=== PATIENT | female | born 1950 | race Caucasian/White ===

== ENCOUNTER → 2024-03-15 | Outpatient (CLI) | payer OTHER, SELFPAY ==
[2024-03-15 11:41] LABS: INR 2.2 (0.9-1.3); Prothrombin Time 22.3 Seconds (9.0-12.2)
[2024-03-15 11:51] LABS: Cardiac Risk Estimate 5.4 RATIO (3.7-5.6); Cholesterol 231 mg/dL (132-200); HDL Cholesterol 43 mg/dL (40-60); LDL Cholesterol,Calculated 147 mg/dL (0-130); Triglycerides 207 mg/dL (30-150)
== END | disposition home or self-care (01) ==
LOC: COPL 10:40
PROVIDERS: PCP Family Medicine; Referring Provider Internal Medicine Cardiovascular Disease; Visit Provider Internal Medicine Cardiovascular Disease
DX: I10 Essential (primary) hypertension (principal); E78.5 Hyperlipidemia, unspecified; I48.20 Chronic atrial fibrillation, unspecified
CPT/HCPCS: 36415; 80061; 85610

== ENCOUNTER → 2024-04-15 | Outpatient (CLI) | payer OTHER, SELFPAY ==
[2024-04-15 14:36] LABS: INR 2.3 (0.9-1.3); Prothrombin Time 23.8 Seconds (9.0-12.2)
== END | disposition home or self-care (01) ==
PROVIDERS: PCP Family Medicine; Referring Provider Internal Medicine Cardiovascular Disease; Visit Provider Internal Medicine Cardiovascular Disease
DX: I48.20 Chronic atrial fibrillation, unspecified (principal)
CPT/HCPCS: 36415; 85610

== ENCOUNTER → 2024-05-18 | Outpatient (CLI) | payer OTHER, SELFPAY ==
[2024-05-18 11:45] LABS: INR 2.4 (0.9-1.3)
[2024-05-18 11:57] LABS: Cardiac Risk Estimate 5.2 RATIO (3.7-5.6); Cholesterol 215 mg/dL (132-200); HDL Cholesterol 41 mg/dL (40-60); LDL Cholesterol,Calculated 141 mg/dL (0-130); Triglycerides 166 mg/dL (30-150)
== END | disposition home or self-care (01) ==
LOC: COPL 10:50
PROVIDERS: PCP Nurse Practitioner Family; Referring Provider Internal Medicine Cardiovascular Disease; Visit Provider Internal Medicine Cardiovascular Disease
DX: I10 Essential (primary) hypertension (principal); I20.9 Angina pectoris, unspecified; E78.5 Hyperlipidemia, unspecified; I48.20 Chronic atrial fibrillation, unspecified
CPT/HCPCS: 36415; 80061; 85610

== ENCOUNTER → 2024-05-20 | Outpatient (CLI) | payer OTHER, SELFPAY ==
[2024-05-20 11:14] LABS: Basophils # (Auto) 0.1 Thou/mm3 (0.0-0.2); Basophils % (Auto) 1 % (0-2.5); Eosinophils # (Auto) 0.2 Thou/mm3 (0.0-0.5); Eosinophils % (Auto) 3 % (0-10); Hematocrit 42.6 % (36.0-46.0); Hemoglobin 14.3 g/dL (12.0-16.0); Immature Granulocytes % (Auto) 0 % (0-0); Immature Granulocytes Auto 0.02 Thou/mm3 (0.00-0.00); Lymphocytes # (Auto) 1.6 Thou/mm3 (1.0-4.8); Lymphocytes % (Auto) 30 % (10-50); Mean Corpuscular HGB Conc 33.6 g/dl (31.0-37.0); Mean Corpuscular Hemoglobin 29.9 pg (25.0-35.0); Mean Corpuscular Volume 89 fL (80-100); Monocytes # (Auto) 0.5 Thou/mm3 (0.0-0.8); Monocytes % (Auto) 10 % (0-12); Neutrophils # (Auto) 2.9 Thou/mm3 (1.8-7.7); Neutrophils % (Auto) 55 % (37-80); Nucleated Red Blood Cell % 0 /100 WBC (0); Platelet Count 214 Thou/mm3 (140-440); RDW Standard Deviation 44.5 fL (36.4-46.3); Red Blood Count 4.78 Miln/mm3 (4.00-5.20); White Blood Count 5.2 Thou/mm3 (3.6-11.0)
[2024-05-20 11:27] LABS: Glucose Estimated Average 114 mg/dL (80-131); Hemoglobin A1C 5.6 % Hgb (4.8-6.0)
[2024-05-20 11:35] LABS: T4 (Thyroxine) 13.4 mcg/dL (4.5-10.9)
[2024-05-20 11:39] LABS: Alanine Aminotransferase 16 U/L (10-49); Albumin, Serum 3.8 gm/dL (3.4-4.8); Albumin/Globulin Ratio 1.7 (1.2-2.2); Alkaline Phosphatase 108 U/L (46-116); Anion Gap 4 (7-16); Aspartate Amino Transferase 19 U/L (0-34); BUN/Creatinine Ratio 30 Ratio (12-20); Bilirubin,Total 0.9 mg/dL (0.3-1.2); Blood Urea Nitrogen 18 mg/dL (9-23); Calcium 9.3 mg/dL (8.3-10.6); Calcium (Corrected) 9.5 mg/dL (8.5-10.1); Carbon Dioxide 29.6 mMol/L (20.0-31.0); Cardiac Risk Estimate 5.1 RATIO (3.7-5.6); Chloride 106 mMol/L (98-107); Cholesterol 200 mg/dL (132-200); Creatinine (Component) 0.6 mg/dL (0.6-1.3); Globulin 2.3 gm/dL (2.3-3.5); Glucose 89 mg/dL (74-106); HDL Cholesterol 39 mg/dL (40-60); LDL Cholesterol,Calculated 127 mg/dL (0-130); Lipase 34 U/L (12-53); Osmolality,Calculated 280 (275-295); Potassium 3.8 mMol/L (3.4-5.1); Sodium 140 mMol/L (136-145); Thyroid Stimulating Hormone 1.98 uIU/mL (0.55-4.78); Total Protein 6.1 gm/dL (5.7-8.2); Triglycerides 170 mg/dL (30-150); eGFR > 60 See Note
[2024-05-20 11:46] LABS: Vitamin D 25 Hydroxy Total > 150.0 ng/mL (7.3-40.2)
[2024-05-20 12:00] LABS: Creatinine MALB Rnd Ur 104 mg/dL (30-125); Microalbumin, Random Urine < 3 mg/L (0-300)
[2024-05-31 06:32] LABS: Thyroid Peroxidase Antibodies* <1 IU/mL (<9)
== END | disposition home or self-care (01) ==
LOC: COPL 10:09
PROVIDERS: PCP Family Medicine; Referring Provider Nurse Practitioner Family; Visit Provider Nurse Practitioner Family
DX: I10 Essential (primary) hypertension (principal); E78.2 Mixed hyperlipidemia; Z79.899 Other long term (current) drug therapy
CPT/HCPCS: 36415; 80053; 80061; 82043; 82306; 82570; 83036; 83690; 84436; 84443; 84630; 85025; 86376

== ENCOUNTER → 2024-05-23 | Outpatient (CLI) | payer OTHER, SELFPAY ==
[2024-05-27 07:05] LABS: Fecal Globin Result NOT DETECTED (NOT DETECTED)
== END | disposition home or self-care (01) ==
LOC: SLDO 13:15
PROVIDERS: PCP Family Medicine; Referring Provider Nurse Practitioner Family; Visit Provider Nurse Practitioner Family
DX: Z12.11 Encounter for screening for malignant neoplasm of colon (principal)
CPT/HCPCS: 82274; G0328

== ENCOUNTER → 2024-06-01 | Outpatient (CLI) | payer OTHER, SELFPAY ==
--- NOTE | 2024-06-01 14:46 | XR_ITS ---
Examination: Abdomen sonogram, complete Date and time of exam: June 01, 2024 1501 hours INDICATIONS: Left upper abdominal pain beginning several years ago. Technique: Multiple real-time grayscale transabdominal sonographic images of the abdomen have been obtained. Findings: Normal gallbladder Normal common bile duct 0.5 cm Pancreatic head 2.3 cm Aorta not enlarged Liver 17.1 cm fatty infiltration smooth contour no focal liver lesions Normal hepatopedal portal venous flow Patent IVC Right kidney 10.6 x 5.0 x 5.2 cm in the cortex 1.1 cm Left kidney 11.1 x 4.8 x 5.4 cm in the cortex 2.0 cm Mild bilateral renal parenchymal scar formation Spleen 8.5 cm IMPRESSION: Normal gallbladder Mild hepatomegaly fatty liver
[2024-06-10 06:44] LABS: Zinc, Plasma* 72 mcg/dL (60-130)
== END | disposition home or self-care (01) ==
LOC: CDIM 14:42 → COPL 15:22
PROVIDERS: PCP Family Medicine; Referring Provider Nurse Practitioner Family; Visit Provider Radiology Diagnostic Radiology
DX: K76.0 Fatty (change of) liver, not elsewhere classified (principal); Z79.899 Other long term (current) drug therapy
CPT/HCPCS: 36415; 76700; 84630

== ENCOUNTER → 2024-06-21 | Outpatient (CLI) | payer OTHER, SELFPAY ==
[2024-06-21 15:57] LABS: INR 2.8 (0.9-1.3); Prothrombin Time 28.8 Seconds (9.0-12.2)
== END | disposition home or self-care (01) ==
LOC: COPL 15:01
PROVIDERS: PCP Family Medicine; Referring Provider Internal Medicine Cardiovascular Disease; Visit Provider Internal Medicine Cardiovascular Disease
DX: I48.20 Chronic atrial fibrillation, unspecified (principal)
CPT/HCPCS: 36415; 85610

== ENCOUNTER → 2024-07-15 | Outpatient (CLI) | payer OTHER, SELFPAY ==
[2024-07-15 13:28] LABS: Cardiac Risk Estimate 4.5 RATIO (3.7-5.6); Cholesterol 190 mg/dL (132-200); HDL Cholesterol 42 mg/dL (40-60); LDL Cholesterol,Calculated 113 mg/dL (0-130); Triglycerides 177 mg/dL (30-150)
[2024-07-15 13:31] LABS: INR 2.6 (0.9-1.3); Prothrombin Time 26.6 Seconds (9.0-12.2)
[2024-07-15 13:37] LABS: Vitamin D 25 Hydroxy Total > 150.0 ng/mL (7.3-40.2)
== END | disposition home or self-care (01) ==
LOC: COPL 11:54
PROVIDERS: PCP Nurse Practitioner Family; Referring Provider Internal Medicine Cardiovascular Disease; Visit Provider Internal Medicine Cardiovascular Disease
DX: I48.20 Chronic atrial fibrillation, unspecified (principal); E67.3 Hypervitaminosis D; E78.1 Pure hyperglyceridemia
CPT/HCPCS: 36415; 80061; 82306; 85610

== ENCOUNTER → 2024-08-16 | Outpatient (CLI) | payer OTHER, SELFPAY ==
[2024-08-16 12:30] LABS: INR 1.7 (0.9-1.3); Prothrombin Time 17.7 Seconds (9.0-12.2)
== END | disposition home or self-care (01) ==
LOC: COPL 11:36
PROVIDERS: PCP Family Medicine; Referring Provider Internal Medicine Cardiovascular Disease; Visit Provider Internal Medicine Cardiovascular Disease
DX: I48.20 Chronic atrial fibrillation, unspecified (principal)
CPT/HCPCS: 36415; 85610

== ENCOUNTER → 2024-08-23 | Outpatient (CLI) | payer OTHER, SELFPAY ==
[2024-08-23 14:44] LABS: INR 2.9 (0.9-1.3); Prothrombin Time 29.9 Seconds (9.0-12.2)
== END | disposition home or self-care (01) ==
LOC: SLDO 13:22
PROVIDERS: PCP Family Medicine; Referring Provider Internal Medicine Cardiovascular Disease; Visit Provider Internal Medicine Cardiovascular Disease
DX: I48.20 Chronic atrial fibrillation, unspecified (principal)
CPT/HCPCS: 36415; 85610

== ENCOUNTER → 2024-09-15 | Outpatient (CLI) | payer OTHER, SELFPAY ==
[2024-09-15 12:19] LABS: INR 3.3 (0.9-1.3)
[2024-09-15 13:14] LABS: Prothrombin Time 32.8 Seconds (9.0-12.2)
== END | disposition home or self-care (01) ==
LOC: COPL 11:01
PROVIDERS: PCP Family Medicine; Referring Provider Internal Medicine Cardiovascular Disease; Visit Provider Internal Medicine Cardiovascular Disease
DX: Z01.89 Encounter for other specified special examinations (principal)
CPT/HCPCS: 36415; 85610

== ENCOUNTER → 2024-09-22 | Outpatient (CLI) | payer OTHER, SELFPAY ==
[2024-09-22 17:06] LABS: INR 3.2 (0.9-1.3)
[2024-09-22 17:08] LABS: Prothrombin Time 32.4 Seconds (9.0-12.2)
== END | disposition home or self-care (01) ==
LOC: COPL 15:43
PROVIDERS: PCP Family Medicine; Referring Provider Internal Medicine Cardiovascular Disease; Visit Provider Internal Medicine Cardiovascular Disease
DX: Z01.89 Encounter for other specified special examinations (principal)
CPT/HCPCS: 36415; 85610

== ENCOUNTER → 2024-10-14 | Outpatient (CLI) | payer OTHER, SELFPAY ==
[2024-10-14 10:47] LABS: INR 2.5 (0.9-1.3); Prothrombin Time 25.2 Seconds (9.0-12.2)
== END | disposition home or self-care (01) ==
LOC: COPL 09:11
PROVIDERS: PCP Family Medicine; Referring Provider Internal Medicine Cardiovascular Disease; Visit Provider Internal Medicine Cardiovascular Disease
DX: Z01.89 Encounter for other specified special examinations (principal)
CPT/HCPCS: 36415; 85610

== ENCOUNTER → 2024-11-15 | Outpatient (CLI) | payer OTHER, SELFPAY ==
[2024-11-15 14:40] LABS: INR 2.1 (0.9-1.3); Prothrombin Time 21.9 Seconds (9.0-12.2)
== END | disposition home or self-care (01) ==
LOC: COPL 13:12
PROVIDERS: PCP Family Medicine; Referring Provider Internal Medicine Cardiovascular Disease; Visit Provider Internal Medicine Cardiovascular Disease
DX: I48.20 Chronic atrial fibrillation, unspecified (principal)
CPT/HCPCS: 36415; 85610

== ENCOUNTER → 2024-12-23 | Outpatient (CLI) | payer OTHER, SELFPAY ==
[2024-12-23 10:57] LABS: INR 2.7 (0.9-1.3); Prothrombin Time 27.3 Seconds (9.0-12.2)
== END | disposition home or self-care (01) ==
LOC: COPL 10:21
PROVIDERS: PCP Internal Medicine; Referring Provider Internal Medicine Cardiovascular Disease; Visit Provider Internal Medicine Cardiovascular Disease
DX: I48.20 Chronic atrial fibrillation, unspecified (principal)
CPT/HCPCS: 36415; 85610

== ENCOUNTER → 2025-01-16 | Outpatient (CLI) | payer OTHER, SELFPAY ==
[2025-01-16 10:42] LABS: Misc Send Out* See Sep Rpt
[2025-01-16 12:03] LABS: B-Type Natriuretic Peptide 116 pg/mL (0-100)
[2025-01-16 12:08] LABS: Glucose Estimated Average 123 mg/dL (80-131); Hemoglobin A1C 5.9 % Hgb (4.8-6.0)
[2025-01-16 12:09] LABS: Alanine Aminotransferase 16 U/L (10-49); Albumin, Serum 3.9 gm/dL (3.4-4.8); Albumin/Globulin Ratio 1.6 (1.2-2.2); Alkaline Phosphatase 111 U/L (46-116); Anion Gap 9 (7-16); Aspartate Amino Transferase 24 U/L (0-34); BUN/Creatinine Ratio 18 Ratio (12-20); Bilirubin,Total 0.8 mg/dL (0.3-1.2); Blood Urea Nitrogen 14 mg/dL (9-23); Calcium 9.6 mg/dL (8.3-10.6); Calcium (Corrected) 9.7 mg/dL (8.5-10.1); Carbon Dioxide 31.0 mMol/L (20.0-31.0); Cardiac Risk Estimate 4.5 RATIO (3.7-5.6); Chloride 105 mMol/L (98-107); Cholesterol 191 mg/dL (132-200); Creatinine (Component) 0.8 mg/dL (0.6-1.3); Globulin 2.4 gm/dL (2.3-3.5); Glucose 96 mg/dL (74-106); HDL Cholesterol 42 mg/dL (40-60); LDL Cholesterol,Calculated 108 mg/dL (0-130); Osmolality,Calculated 289 (275-295); Potassium 3.8 mMol/L (3.4-5.1); Sodium 145 mMol/L (136-145); Total Protein 6.3 gm/dL (5.7-8.2); Triglycerides 204 mg/dL (30-150); eGFR > 60 See Note
== END | disposition home or self-care (01) ==
LOC: COPL 09:51
PROVIDERS: PCP Nurse Practitioner Family; Referring Provider Nurse Practitioner Family; Visit Provider Nurse Practitioner Family
DX: I11.0 Hypertensive heart disease with heart failure (principal); I50.9 Heart failure, unspecified; E78.1 Pure hyperglyceridemia
CPT/HCPCS: 36415; 80053; 80061; 82172; 83036; 83880

== ENCOUNTER → 2025-01-27 | Outpatient (CLI) | payer OTHER, SELFPAY ==
[2025-01-27 17:06] LABS: INR 2.1 (0.9-1.3); Prothrombin Time 20.9 Seconds (9.0-12.2)
== END | disposition home or self-care (01) ==
LOC: COPL 14:35
PROVIDERS: PCP Family Medicine; Referring Provider Internal Medicine Cardiovascular Disease; Visit Provider Internal Medicine Cardiovascular Disease
DX: I48.20 Chronic atrial fibrillation, unspecified (principal)
CPT/HCPCS: 36415; 85610

== ENCOUNTER → 2025-02-15 | Outpatient (CLI) | payer OTHER, SELFPAY ==
[2025-02-15 15:13] LABS: INR 2.4 (0.9-1.3); Prothrombin Time 23.5 Seconds (9.0-12.2)
== END | disposition home or self-care (01) ==
LOC: COPL 13:22
PROVIDERS: PCP Student in an Organized Health Care Education/Training Program; Referring Provider Internal Medicine Cardiovascular Disease; Visit Provider Internal Medicine Cardiovascular Disease
DX: I48.20 Chronic atrial fibrillation, unspecified (principal)
CPT/HCPCS: 36415; 85610

== ENCOUNTER → 2025-03-14 | Outpatient (CLI) | payer OTHER, SELFPAY ==
--- NOTE | 2025-03-14 13:27 | XR_ITS ---
Examination: Knee, left, 3 views Technique: Knee AP, lateral, oblique 3 views Date and time of exam: March 14, 2025, 1358 hours INDICATIONS: Patient fell 2008 with injury to the knee, knee pain. FINDINGS: Advanced tricompartment osteoarthritis, including severe narrowing lateral joint space Moderate osteopenia. No fracture IMPRESSION: Advanced tricompartment osteoarthritis
--- NOTE | 2025-03-14 13:27 | XR_ITS ---
Examination: Lumbar spine, 5 views Technique: Lumbar spine AP, lateral, coned lateral lower lumbar spine, bilateral obliques 5 views Exam date and time: March 14, 2025, 1358 hours INDICATIONS: Patient fell 2008 with injury to the back, back pain. FINDINGS: Severe osteopenia Lumbar dextroscoliosis 8 degrees Advanced diffuse facet arthropathy. No lumbar fracture. Advanced degenerative disc disease L5-S1 IMPRESSION: No lumbar fracture Advanced degenerative disc disease L5-S1
--- NOTE | 2025-03-14 13:27 | XR_ITS ---
Examination: Left hip AP, lateral, AP pelvis 3 views Technique: Hip AP lateral, AP pelvis, 3 views Exam date and time: March 14, 2025, 1358 hours INDICATIONS: Left-sided hip pain after fall 2008. FINDINGS: The films are underpenetrated No hip or pelvic fracture. Moderate bilateral hip osteoarthritis IMPRESSION: Moderate bilateral hip osteoarthritis.
[2025-03-14 14:01] LABS: INR 2.1 (0.9-1.3); Prothrombin Time 20.9 Seconds (9.0-12.2)
== END | disposition home or self-care (01) ==
LOC: COPL 13:09 → CDIM 13:10
PROVIDERS: PCP Family Medicine; Referring Provider Internal Medicine Cardiovascular Disease; Visit Provider Student in an Organized Health Care Education/Training Program
DX: M51.370 Other intervertebral disc degeneration, lumbosacral region with discogenic back pain only (principal); M16.0 Bilateral primary osteoarthritis of hip; S29.9XXS Unspecified injury of thorax, sequela; W19.XXXS Unspecified fall, sequela; M17.12 Unilateral primary osteoarthritis, left knee
CPT/HCPCS: 36415; 72110; 73502; 73562; 85610

== ENCOUNTER → 2025-04-05 | Outpatient (CLI) | payer OTHER, SELFPAY ==
--- NOTE | 2025-04-05 13:00 | XR_ITS ---
Examination: Screening digital mammography, bilateral Computer aided detection 3-D breast Tomosynthesis, bilateral Date and time of exam: April 05, 2025, 1215 hours, compared to mammograms dating to December 02, 2018 Indication: Screening Technique: Nonmagnified MLO, CC views of the breasts to been obtained, reconstructed from 3-D Tomosynthesis images. R2 computer aided detection program utilized for evaluation of suspicious masses and/or abnormal calcifications. 3-D Tomosynthesis images obtained. Findings: Scattered areas of fibroglandular density. Benign calcifications. No interval suspicious mass Impression: BI-RADS category II: Benign Findings. Recommend 1 year follow-up mammogram.
--- NOTE | 2025-04-05 13:15 | XR_ITS ---
Examination: Bone densitometry Date and time of exam: April 05, 2025, 1319 hours INDICATIONS: Hysterectomy age 50 vitamin D 5 years history postmenopausal rib fractures Technique: Lumbar spine and hip total bone mineralization values of an calculated. Peak reference and age match control results have been displayed. Findings: Lumbar spine total bone mineralization is 0.766 gm/cm2. This is 2.6 standard deviations below peak reference. This is 0.2 standard deviations below age-matched controls. Hip total bone mineralization is 0.691 gm/cm2 This is 2.1 standard deviations below peak reference. This is 0.3 standard deviations below age-matched controls Impression: There is osteoporosis based on lumbar spine measurements. There is osteoporosis based on hip measurements Lumbar mineralization is decreased 5.0% compared with March 26, 2023 Hip mineralization is decreased 6.1% compared with March 26, 2023
== END | disposition home or self-care (01) ==
LOC: CDIM 12:06
PROVIDERS: Referring Provider Nurse Practitioner Family; Visit Provider Student in an Organized Health Care Education/Training Program
DX: Z12.31 Encounter for screening mammogram for malignant neoplasm of breast (principal); R92.323 Mammographic fibroglandular density, bilateral breasts; R92.1 Mammographic calcification found on diagnostic imaging of breast; M81.0 Age-related osteoporosis without current pathological fracture; M85.89 Other specified disorders of bone density and structure, multiple sites
CPT/HCPCS: 77063; 77067; 77080

== ENCOUNTER → 2025-04-14 | Outpatient (CLI) | payer OTHER, SELFPAY ==
[2025-04-14 13:37] LABS: INR 3.2 (0.9-1.3)
[2025-04-14 14:25] LABS: Prothrombin Time 30.8 Seconds (9.0-12.2)
== END | disposition home or self-care (01) ==
PROVIDERS: PCP Family Medicine; Referring Provider Internal Medicine Cardiovascular Disease; Visit Provider Internal Medicine Cardiovascular Disease
DX: I48.20 Chronic atrial fibrillation, unspecified (principal)
CPT/HCPCS: 36415; 85610